=== PATIENT | male | born 1960 | race Caucasian/White ===

== ENCOUNTER 2018-09-14 08:49 | Day surgery (SDC) | payer BC ==
[~2018-09-14 08:49] MED LIST: CEFAZOLIN 2 Gram 2 GM/50 ML BAG IVPB ONE; CELECOXIB 100 MG CAPSULE PO ONE; MECLIZINE 25 MG TABLET PO ONE; METOCLOPRAMIDE 10 MG TABLET PO ONE; VANCOMYCIN 1GM/200ML PREMIX 1 GM/200 ML PIGGYBACK IVPB ONE
[2018-09-14] MEDS ORDERED: ROPIVACAINE HCL (NAROPIN) /PF 5MG/ML 20ML VIAL IV ONE (08:50)
[2018-09-14] MEDS ORDERED: TRANEXAMIC ACID 1,000 MG/10 ML ML IV ONE (08:50)
[2018-09-14] MEDS ORDERED: DEXAMETHASONE 4 MG/ML 1ML VIAL IVP ONE (08:50)
[2018-09-14] MEDS ORDERED: 0.9 % SODIUM CHLORIDE 10 ML VIAL IVP ONE (08:50)
[2018-09-14] MEDS ORDERED: MIDAZOLAM HCL 2MG/2ML VIAL IV ONE (08:50)
[2018-09-14] MEDS ORDERED: PROPOFOL 10 MG/ML VIAL IV ONE (08:50)
[2018-09-14] MEDS ORDERED: GLYCOPYRROLATE 0.2 MG/ML ML IV ONE (08:50)
[2018-09-14] MEDS ORDERED: KETAMINE HCL 100MG/1ML VIAL INJ ONE (08:50)
[2018-09-14 09:33] LABS: ABO GROUP B
[2018-09-14 09:34] LABS: RH TYPE POSITIVE
[2018-09-14] MEDS ORDERED: RINGERS SOLUTION,LACTATED 1,000 ML IV ONE ×4 (09:41→13:05)
[2018-09-14] MEDS: FAMOTIDINE 20MG TABLET PO ONE ×2 (09:42)
[2018-09-14 09:52] LABS: ANTIBODY SCREEN NEGATIVE (NEGATIVE)
[2018-09-14] MEDS ORDERED: TRANEXAMIC ACID 1,000 MG/10 ML ML IU ONE (11:36)
[2018-09-14] MEDS ORDERED: BUPIVACAINE 0.5% W/EPI MPF 30 ML VIAL SQ ONE (11:36)
[2018-09-14] MEDS ORDERED: ACETAMINOPHEN W/ CODEINE 300MG/60MG TABLET PO PRN ×2 (14:27)
[2018-09-14] MEDS ORDERED: HYDROCODONE/APAP 10/325 TABLET PO PRN (14:27)
[2018-09-14] MEDS ORDERED: NALOXONE 0.4 MG/1 ML VIAL IVP PRN (14:27)
[2018-09-14] MEDS ORDERED: ONDANSETRON HCL IV 4 MG/2 ML VIAL IVP PRN (14:27)
[2018-09-14] MEDS ORDERED: HYDROMORPHONE HCL 2 MG/ML VIAL IM PRN (14:27)
[2018-09-14] MEDS ORDERED: ZOLPIDEM TARTRATE 5 MG TABLET PO PRN (14:27)
[2018-09-14] MEDS ORDERED: ACETAMINOPHEN 325 MG TAB PO PRN (14:27)
[2018-09-14] MEDS ORDERED: MAGNESIUM HYDROXIDE 30 ML UDC PO PRN (14:27)
[2018-09-14] MEDS ORDERED: BISACODYL 10 MG SUPP RC PRN (14:27)
[2018-09-14] MEDS ORDERED: DIPHENHYDRAMINE HCL 25 MG CAPSULE PO PRN (14:27)
[2018-09-14] MEDS ORDERED: AL HYDROX/MAG HYDROX 30ML UD PO PRN (14:27)
[2018-09-14] MEDS ORDERED: KETOROLAC 30 MG/ML VIAL IVP PRN ×2 (14:27)
[2018-09-14] MEDS ORDERED: RIVAROXABAN 10 MG TABLET PO SCH (14:30)
[2018-09-14] MEDS: HYDROCODONE/APAP 10/325 TABLET PO PRN ×3 (15:12→23:27)
--- NOTE | 2018-09-14 17:22 | Rehab Evaluation ---
Patient Information - Patient Information Diagnosis: OA L knee Ordered Treatment: PT Evaluate and Treat Status: Initial Evaluation Surgery: Yes (L TKA) Date of Surgery: 09/14/18 Past Medical/Surgical Hx: PAST MEDICAL/SURGICAL HISTORY Past Surgical History hernia sx; right hip replacement 2016; colonoscopy. left knee arthroscopy. PMH - Respiratory Hx Respiratory Disorders No PMH - Cardiovascular Hx Cardiovascular Disorders No Hx Hypertension noted borderline with hip pain and knee pain Exercise Tolerance Poor Comment: due to painful knee PMH - Neuro Hx Neurological Disorders No PMH - GI Hx Gastrointestinal Disorders Yes Hx Weight Loss/Weight Gain Yes: gain of 5-10 lbs PMH - Hx Genitourinary Disorders No PMH - Endocrine Hx Endocrine Disorders No PMH - Musculoskeletal Hx Musculoskeletal Disorders Yes Hx Arthritis Yes: left knee ;rt hip PMH - Psych Hx Psychiatric Problems No PMH - Hematology/Oncology Hx Hematology/Oncology No Disorders Premorbid Status: Detail (The patient was independent with all mobility prior to surgery.) Social History: Detail (The jaimee lives in a 2 story house with spouse with 1 step, landing, 1 step landing and 2 steps landing and 2 steps with no handrails. The patient does not have use the second floor. The bathroom is equipped with : walk in shower and elevated toilet with no grab bars. The patient has a walker with wheels.) Precautions: [place], Fall, Other (WBAT on the L LE.) - Time With Patient Total Time Spent With Patient (Min): 30 Treatment Procedures: Detail (Initial Evaluation low complexity and gait training) Subjective Information - Subjective Information Per Patient (The patient had no complaints of pain.) Objective Data - Mental Status Patient Orientation: Oriented x3 - Visual Perception Appears within normal limits for therapeutic activities - ROM Not within normal limits (The jaimee's L knee AROM is limited as to be expected s/p surgery. All other LE AROM was WNL.) - Strength/Tone Not within normal limits (L LE strength was not tested s/p surgery, however was functional ie: patient was able to lift LE in and out of bed. R LE strength was functional.) - Bed Mobility Independent (The patient was independent with supine to and from sit transfer and scooting up in bed.) - Transfers Independent (The patient was independent with sit to and from stand transfer.) - Balance Balance Sitting: Good Balance Standing: Good - Gait Detail (The patient was ambulated with front wheeled walker a distance of 120 feet x 1 with supervision for safety only WBAT on the L LE.) Therapy Assessment - Therapy Assessment Detail (The patient was independent with bed mobility and transfers, and supervision for safety with ambulation. Feel the patient will progress well with mobility.) Problem List - Problem List Physical Therapy Problem List: Detail (1) Decreased L knee AROM and L LE strength as to be expected following surgery.) Goals - Goals Physical Therapy Goals: 1) The patient will ambulate on stairs with supervision for safety using proper technique. 2) The patient will be independent with TKA HEP. Prognosis - Prognosis Good Plan - Plan Physical Therapy Plan: PT 1-2 sessions for gait training on stairs and instruction in HEP.
[2018-09-14] MEDS: CEFAZOLIN 2 Gram 2 GM/50 ML BAG IVPB SCH (18:51)
[2018-09-14] MEDS: DOCUSATE SODIUM 100 MG CAPSULE PO SCH (22:23)
[2018-09-14] MEDS: POTASSIUM CHLORIDE/D5-0.9%NACL 20 MEQ/1,000 ML BAG IV SCH ×2 (22:28→23:27)
[2018-09-15] MEDS: CEFAZOLIN 2 Gram 2 GM/50 ML BAG IVPB SCH ×2 (03:25→10:00)
[2018-09-15] MEDS: TRAMADOL HCL 50 MG TABLET PO PRN ×3 (03:26→12:43)
[2018-09-15] MEDS: HYDROCODONE/APAP 10/325 TABLET PO PRN ×2 (06:12→09:57)
[2018-09-15 06:56] LABS: HEMATOCRIT 41.2 % (42.0-52.0); HEMOGLOBIN 14.2 gm/dl (14.0-18.0)
[2018-09-15 07:12] LABS: BLOOD UREA NITROGEN 9 mg/dL (6-20); CREATININE 0.8 mg/dL (0.7-1.2); EST GLOMERULAR FILTRATION RATE > 60 mL/min; GLUCOSE,RANDOM 123 mg/dL (74-109)
[2018-09-15] MEDS: POTASSIUM CHLORIDE/D5-0.9%NACL 20 MEQ/1,000 ML BAG IV SCH (07:33)
[2018-09-15] MEDS: DOCUSATE SODIUM 100 MG CAPSULE PO SCH (09:57)
[2018-09-15] MEDS ORDERED: RIVAROXABAN 10 MG TABLET PO SCH (10:00)
[2018-09-15] MEDS ORDERED: FERROUS SULFATE 325 MG TAB PO SCH (10:00)
--- NOTE | 2018-09-15 10:33 | Physical Therapy Tx Note ---
Physical Therapy Tx Note - Treatment Note Tolerated: Good Total Time Spent With Patient: 25 Physical Therapy Tx Note: Detail (The patient was up in chair when PT arrived. The patient ambulated with front wheeled walker a distance of 150 feet x 1 WBAT on the L LE independently. The patient ambulated on stairs with use of one railing and standard cane using proper technique with supervision for safety only. The patient completed TKA HEP : seated heel slides, ankle pumps, quad sets, gluteal sets, hamstring sets, and SLR. The patient has met all inpatient PT goals.) Physical Therapy Problem List: Detail (1) Decreased L knee AROM and L LE stre ngth as to be expected following surgery.) Physical Therapy Goals: 1) The patient will ambulate on stairs with supervision for safety using proper technique. (Goal Met). 2) The patient will be independent with TKA HEP. (Goal Met) Prognosis: Good Physical Therapy Plan: The patient has met all inpatient PT goals and is disch arged from inpatient PT. The patient is to receive Home PT.
--- NOTE | 2018-09-15 10:49 | Rehab Evaluation ---
Patient Information - Patient Information Diagnosis: OA L knee Ordered Treatment: OT Evaluate and Treat Status: Initial Evaluation Surgery: Yes (L TKA) Date of Surgery: 09/14/18 Past Medical/Surgical Hx: PAST MEDICAL/SURGICAL HISTORY Past Surgical History hernia sx; right hip replacement 2016; colonoscopy. left knee arthroscopy. PMH - Respiratory Hx Respiratory Disorders No PMH - Cardiovascular Hx Cardiovascular Disorders No Hx Hypertension noted borderline with hip pain and knee pain Exercise Tolerance Poor Comment: due to painful knee PMH - Neuro Hx Neurological Disorders No PMH - GI Hx Gastrointestinal Disorders Yes Hx Weight Loss/Weight Gain Yes: gain of 5-10 lbs PMH - Hx Genitourinary Disorders No PMH - Endocrine Hx Endocrine Disorders No PMH - Musculoskeletal Hx Musculoskeletal Disorders Yes Hx Arthritis Yes: left knee ;rt hip PMH - Psych Hx Psychiatric Problems No PMH - Hematology/Oncology Hx Hematology/Oncology No Disorders Premorbid Status: Detail (The patient was independent with all mobility prior to surgery. 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 He will be staying on the main level temporarily. The bathroom is equipped with a walk in shower, no grab bar or seat and an elevated toilet with a grab bar. The patient has a 2 wheeled walker.) Precautions: [place], Fall, Other (WBAT on the L LE.) - Time With Patient Total Time Spent With Patient (Min): 25 Treatment Procedures: Detail (OT eval low complexity) Subjective Information - Subjective Information Per Patient Objective Data - Pain Pain Present: Yes (04/18) - Mental Status Patient Orientation: Oriented x3 - Visual Perception Appears within normal limits for therapeutic activities - ROM Within normal limits (Jose UE AROM WNL) - Strength/Tone Within normal limits (Jose UE strength WNL) - Coordination Appears within normal limits for therapeutic activities - Bed Mobility Independent (Ind with supine to sit) - Transfers Independent (Ind with sit to stand from EOB and chair heights.) - Balance Balance Sitting: Good Balance Standing: Good - Sensation Intact - Gait Detail (Pt ambulating in room with 2 wheeled walker Indly.) - ADL's/IADL's Detail (Pt educated and able to demonstrate learning of modified LE dressing techniques including doffing briefs and slipper socks and donning boxers, shorts and slip on shoes. Reviewed kitchen and shower safety and modifications, pt able to verbalize understanding.) Therapy Assessment - Therapy Assessment Detail (Pt is Ind with modified LE dressing techniques.) Problem List - Problem List Physical Therapy Problem List: Detail (1) Decreased L knee AROM and L LE strength as to be expected following surgery.) Occupational Therapy Problem List: Detail (No current IP OT problems identified.) Goals - Goals Physical Therapy Goals: 1) The patient will ambulate on stairs with supervision for safety using proper technique. (Goal Met). 2) The patient will be independent with TKA HEP. (Goal Met) Occupational Therapy Goals: No current IP OT goals identified. Prognosis - Prognosis Good Plan - Plan Physical Therapy Plan: The patient has met all inpatient PT goals and is discharged from inpatient PT. The patient is to receive Home PT. Occupational Therapy Plan: No further IP OT recommended. Thank you for this referral.
--- NOTE | 2018-09-15 13:50 | Operative Note ---
DATE OF SURGERY: 09/14/2018 PREOPERATIVE DIAGNOSIS: End-stage arthrosis of the left knee. POSTOPERATIVE DIAGNOSIS: End-stage arthrosis of the left knee. OPERATION: Cemented left total knee arthroplasty using [employer] II components with a size 7 Oxinium femur, a size 6 stemmed tibia baseplate, a 9 mm lipped highly crosslinked tibial insert, and a 35 mm all-plastic patella. STAFF SURGEON: López Patten MD ANESTHESIA: Spinal. PREPARATION: Chloraprep. INDIVIDUAL CONSIDERATIONS: None. ELEVATOR MECHANIC APPRENTICE: Mrs. Cris Bernal PROCEDURE: The patient was taken to the operating room, placed supine on the operating room table. He had a successful induction of a spinal anesthetic. The left lower extremity was prepped and draped in the usual fashion. The limb was elevated and tourniquet was inflated to 250 mmHg. The patient had a midline approach to the knee. Sharp dissection carried down through skin and subcutaneous tissue. Small veins were coagulated with a Bovie. A medial arthrotomy was performed. The patella was everted and the knee was flexed. The patient had exposed bone in the medial and patellofemoral compartments with bone loss. ACL was sacrificed, provisional anterior meniscectomies were performed, capsule was released from the medial proximal tibia, and the fat pad was resected. The initial femoral marine pilot hole was then made freehand. The intramedullary femoral cutting jig was placed. It was cut in 7.0 degrees of valgus and adjusted for rotation and secured with pins for a 10 mm resection. The initial transverse cut was then made. The skin guide was placed through the anterior and posterior marine pilot holes. It was found that a size 7 would be appropriate. The anterior and posterior cuts followed by chamfer cuts were made. Osteophytes removed, and a size 7 trial was placed and found to fit well. The tibia was brought forward, and the remainder of the meniscal remnants removed with a Bovie. The extraarticular tibial cutting jig was placed. It was cut in neutral with a 3-degree AP slope. It was set for a 9 mm resection keyed off the high lateral side and secured with pins. When cutting the tibia, care was taken to preserve the PCL insertion on the tibia. Large osteophytes were removed, and I could fit a size 6 baseplate. It was adjusted for rotation and secured with pins. With a 9 mm trial and femoral trial, there was excellent motion and stability, ligamentous balance, and rotation alignment were thought to be normal. Femoral marine pilot holes were impacted and the tri-flange tibial stamp was impacted, and these trial components were removed. The patient had a very thick patella and roughly 9 mm of bone was removed freehand. I was easily able to fit a 35 patella. The 3 marine pilot holes were then drilled. The tourniquet was let down briefly to get bleeders posteriorly and then placed back up again. The knee was then thoroughly irrigated out with pulsatile Betadine and saline to remove any visual or palpable debris. Bony surfaces were then dried. A size 6 stemmed tibia baseplate was cemented into place followed by impaction of the 9 mm lipped tibial insert followed by cementing in the size 7 Oxinium femur followed by cementing in the 35 mm patella. The implant surfaces were compressed, excess cement was removed. After the cement had set, there was excellent motion and stability, ligamentous balance, rotation alignment, and patellofemoral tracking were normal. No lateral release was required. Again thorough irrigation and the tourniquet was let down. Hemostasis was obtained with a Bovie. The capsule was then closed with a running #2 quill, subcu was closed in layers with running 0 quill, skin was closed with sayda. Prior to closure, I infiltrated the skin, subcu, and periosteum with 30 mL of 0.5% Marcaine with epinephrine. After closure, we injected the knee with a mixture of 30 mL of saline with 1 g of tranexamic acid. A sterile bulky compressive ADOLFO-type dressing was applied. The patient tolerated the procedure well. Needle and sponge counts were correct. Estimated blood loss was minimal, and he was taken back to recovery in good condition. There were no complications. BELEN
== END 2018-09-15 13:10 | disposition home health service (06) ==
LOC: SUR 08:49 → MEDSURG 13:17 → SUR 09-15 13:10
PROVIDERS: ATTEND Orthopaedic Surgery
DX: M17.12 Unilateral primary osteoarthritis, left knee (principal); F17.220 Nicotine dependence, chewing tobacco, uncomplicated
CPT/HCPCS: 80048; 85014; 85018; 86850; 86900; 86901; J1885; J3370; J3480; J3490; J7120